=== PATIENT | male | born 1980 | race Caucasian/White ===

== ENCOUNTER 2020-02-11 17:27 | Emergency (ER) | payer MEDICAID ==
--- NOTE | 2020-02-11 18:28 | NUR ---
PATIENT LEFT WITHOUT BEING TRIAGED. NO FURTHER CARE PROVIDED FOR PATIENT.
== END 2020-02-11 18:28 | disposition left against medical advice (07) ==
LOC: MED 17:27
DX: R10.9 Unspecified abdominal pain (principal); Z53.21 Procedure and treatment not carried out due to patient leaving prior to being seen by health care provider

== ENCOUNTER 2020-09-27 14:12 | Emergency (ER) | payer MEDICAID ==
[~2020-09-27] VITALS: Ht 175.3 cm; Wt 142.4 kg
[2020-09-27 14:16] VITALS: BP 119/78
[2020-09-27] MEDS ORDERED: HYDROcodone/APAP 5/325 MG 1 TAB TAB PO ONE (14:20)
[2020-09-27] MEDS ORDERED: HYDR-5080 PO (15:39)
[2020-09-27] MEDS ORDERED: IBUP-2213 PO (15:39)
[2020-09-27] MEDS ORDERED: KETOROLAC 30 MG/ML VIAL IM ONE (15:50)
[2020-09-27 16:04] LABS: APPEARANCE,URINE CLEAR (CLEAR); BILIRUBIN,URINE NEGATIVE (NEGATIVE); BLOOD, URINE NEGATIVE (NEGATIVE); COLOR,URINE YELLOW (YELLOW); LEUKOCYTE ESTERASE ,URINE NEGATIVE (NEGATIVE); NITRITE, URINE NEGATIVE (NEGATIVE); UGLUCOSE NEGATIVE (NEGATIVE)
[2020-09-27 16:07] VITALS: BP 119/78
== END 2020-09-27 16:08 | disposition home or self-care (01) ==
LOC: MED 14:12
DX: N43.3 Hydrocele, unspecified (principal); N50.89 Other specified disorders of the male genital organs
CPT/HCPCS: 76870; 81003; 87086; 96372; 99284; J1885

== ENCOUNTER 2021-03-02 16:00 | Emergency (ER) | payer MEDICAID ==
[~2021-03-02] VITALS: Ht 175.3 cm; Wt 135.6 kg
[~2021-03-02 16:00] MED LIST: HYDR-5080 PO; IBUP-2213 PO
[2021-03-02 16:16] VITALS: BP 156/95
--- NOTE | 2021-03-02 16:22 | NUR ---
TENT 2
--- NOTE | 2021-03-02 17:13 | NUR ---
AMBULATED TO ER BED 1
--- NOTE | 2021-03-02 17:50 | NUR ---
RECEIVED IN ED 1 WITH C/O COUGH AND MILD CONGESTION X 2 DAYS.
[2021-03-02] MEDS ORDERED: IBUP-2213 PO (19:32)
[2021-03-02] MEDS ORDERED: BENZ-196 PO (19:32)
--- NOTE | 2021-03-02 19:50 | NUR ---
Patient discharged with v/s stable. Written and verbal after care instructions given and explained. Patient alert, oriented and verbalized understanding of instructions. Ambulatory with to car. All questions addressed prior to discharge. ID band removed. Patient advised to follow up with PMD. Rx of IBUPROFEN AND ZOFRAN given. Patient educated on indication of medication including possible reaction and side effects. Opportunity to ask questions provided and answered.
[2021-03-02 19:52] VITALS: BP 156/95
== END 2021-03-02 19:50 | disposition home or self-care (01) ==
LOC: MED 16:00
DX: B34.9 Viral infection, unspecified (principal); Z20.822 Contact with and (suspected) exposure to COVID-19; Z79.899 Other long term (current) drug therapy
CPT/HCPCS: 99283

== ENCOUNTER 2021-05-10 20:22 | Emergency (ER) | payer OTHER, MEDICAID ==
[~2021-05-10] VITALS: Ht 172.7 cm; Wt 95.7 kg
[~2021-05-10 20:22] MED LIST changes: +BENZ-196 PO
[2021-05-10 20:29] VITALS: BP 146/93
--- NOTE | 2021-05-10 20:34 | NUR ---
PATIENT AMBULATED TO BED 9
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
[2021-05-10] MEDS ORDERED: KETOROLAC 30 MG/ML VIAL IM ONE (21:10)
[2021-05-10] MEDS ORDERED: TIZA4TAB11 PO (21:14)
--- NOTE | 2021-05-10 21:23 | NUR ---
PT TAKEN TO RAD
[2021-05-10] MEDS ORDERED: LID5T TP (21:52)
[2021-05-10 22:33] VITALS: BP 118/65
--- NOTE | 2021-05-10 22:34 | NUR ---
Patient discharged with v/s stable. Written and verbal after care instructions given and explained. Patient alert, oriented and verbalized understanding of instructions. Ambulatory with steady gait. All questions addressed prior to discharge. ID band removed. Patient advised to follow up with PMD. Rx of ZANAFLEX given. Patient educated on indication of medication including possible reaction and side effects. Opportunity to ask questions provided and answered.
== END 2021-05-10 22:34 | disposition home or self-care (01) ==
LOC: MED 20:22
DX: S39.012A Strain of muscle, fascia and tendon of lower back, initial encounter (principal); M25.561 Pain in right knee; M25.562 Pain in left knee; Z79.899 Other long term (current) drug therapy; V49.49XA Driver injured in collision with other motor vehicles in traffic accident, initial encounter; Y93.89 Activity, other specified; Y92.89 Other specified places as the place of occurrence of the external cause; Y99.8 Other external cause status
CPT/HCPCS: 72100; 96372; 99283; J1885

== ENCOUNTER 2021-07-27 03:57 | Emergency (ER) | payer MEDICAID ==
[~2021-07-27] VITALS: Ht 175.3 cm; Wt 139.7 kg
[~2021-07-27 03:57] MED LIST changes: +LID5T TP; +TIZA4TAB11 PO
[2021-07-27 04:55] VITALS: BP 168/99
--- NOTE | 2021-07-27 05:04 | NUR ---
SWABBED PATIENT AND SENT TO LAB
--- NOTE | 2021-07-27 05:09 | NUR ---
patient to lobby
[2021-07-27] MEDS ORDERED: ALBU0.0912 IH (06:16)
[2021-07-27] MEDS ORDERED: ONDA-188 SL (06:16)
[2021-07-27 06:30] VITALS: BP 168/99
--- NOTE | 2021-07-27 06:30 | NUR ---
Patient discharged with v/s stable. Written and verbal after care instructions given and explained. Patient alert, oriented and verbalized understanding of instructions. Ambulatory with steady gait. All questions addressed prior to discharge. ID band removed. Patient advised to follow up with PMD. Rx of albuterol sulfate and zofran odt given. Patient educated on indication of medication including possible reaction and side effects. Opportunity to ask questions provided and answered.
--- NOTE | 2021-07-27 06:30 | NUR ---
SEEN BY DENNISE CORTES NO NURSING INTERVENTION NEEDED
== END 2021-07-27 06:30 | disposition home or self-care (01) ==
LOC: MED 03:57
DX: J06.9 Acute upper respiratory infection, unspecified (principal); Z20.822 Contact with and (suspected) exposure to COVID-19
CPT/HCPCS: 71045; 87804; 99284